=== PATIENT | male | born 1975 | race American Indian/Alaskan Native ===

== ENCOUNTER 2019-05-09 10:31 | Emergency (ER) | payer SELFPAY ==
--- NOTE | 2019-05-09 11:33 | XRay Report ---
CHEST 2 VIEWS INDICATION / CLINICAL INFORMATION: MAIN: persistant cough, fever FOR 3 DAYS. COMPARISON: None available. FINDINGS: SUPPORT DEVICES: None. HEART / MEDIASTINUM: No significant abnormality. LUNGS / PLEURA: No significant pulmonary or pleural abnormality. No pneumothorax. ADDITIONAL FINDINGS: No significant additional findings. IMPRESSION: 1. No acute findings. Signer Name: Yfn Saucedo MD Signed: 05/09/2019 11:29 AM Workstation Name: [id number]
--- NOTE | 2019-05-09 18:28 | Emergency Department Report ---
ED Fever HPI - General Chief Complaint: Fever Stated Complaint: FLU SX - History of Present Illness Initial Comments: 43-year-old male complaining of fevers or throat pain with chest pain when he coughs 3 days he denies shortness of breath he denies nausea vomiting and abdominal pain. Past medical history is of spina bifida. Patient ambulates with cane Timing/Duration: other (3 days) Fever Severity/Quality: low grade Associated Symptoms: cough, headache, sore throat. denies: abdominal pain, chest pain, confusion, nausea/vomiting, rash, shortness of breath ED Review of Systems ROS: Stated complaint: FLU SX Other details as noted in HPI Comment: All other systems reviewed and negative Constitutional: chills, fever Eyes: denies: eye pain ENT: throat pain. denies: ear pain Respiratory: cough. denies: shortness of breath, SOB with exertion Cardiovascular: denies: chest pain Gastrointestinal: denies: abdominal pain, nausea, vomiting Skin: denies: rash, lesions Neurological: headache ED Past Medical Hx - Past Medical History Previous Medical History?: Yes Additional medical history: Spina bifida - Surgical History Past Surgical History?: Yes Additional Surgical History: spinal surger - Social History Smoking Status: Current Every Day Smoker Substance Use Type: Alcohol - Medications Home Medications: Home Medications Medication Instructions Recorded Confirmed Last Taken Type Amoxicillin [Trimox CAP] 500 mg PO BID 10 Days #20 capsule 05/09/19 Unknown Rx ED Physical Exam - General Limitations: Physical Limitation General appearance: alert, in no apparent distress - Head Head exam: Absent: atraumatic - Eye Eye exam: Present: normal appearance. Absent: conjunctival injection - ENT ENT exam: Present: mucous membranes moist, TM's normal bilaterally, other (oropharynx erythremic no exudate mild uvula swelling) - Neck Neck exam: Present: normal inspection - Respiratory Respiratory exam: Present: normal lung sounds bilaterally. Absent: respiratory distress, wheezes - Cardiovascular Cardiovascular Exam: Present: regular rate, normal heart sounds - GI/Abdominal GI/Abdominal exam: Present: soft - Extremities Exam Extremities exam: Present: normal inspection - Neurological Exam Neurological exam: Present: alert, oriented X3 - Psychiatric Psychiatric exam: Present: normal affect - Skin Skin exam: Present: warm, dry, intact, normal color. Absent: rash ED Course Vital Signs 05/09/19 11:00 Temperature 99.1 F Pulse Rate 80 Respiratory 18 Rate Blood Pressure 143/89 [Right] O2 Sat by Pulse 99 Oximetry ED Medical Decision Making - Medical Decision Making 43-year-old male with complaint of fever sore throat and coughing 3 days rapid strep positive. We'll treat patient with amoxicillin 500 mg twice a day 10 days. And to follow up with PCP Critical Care Time: No Critical care attestation.: If time is entered above; I have spent that time in minutes in the direct care of this critically ill patient, excluding procedure time. ED Disposition Clinical Impression: Strep pharyngitis Disposition: DC- TO HOME OR SELFCARE Is pt being admited?: No Does the pt Need Aspirin: No Condition: Stable Instructions: Strep Throat (ED) Additional Instructions: Rest saltwater gargles at least 3 times a day. Increase oral intake 6-8 glasses of water daily. Take antibiotics until completed. After 24 hours of taking antibiotics change toothbrush. Okay to be use Advil or account or Tylenol for fever or pain. Follow up with Jennifer Prescriptions: Amoxicillin [Trimox CAP] 500 mg PO BID 10 Days #20 capsule Referrals: JENNIFER RODRIGUEZ [Other] - 3-5 Days Time of Disposition: 18:29
[2019-05-09 18:36] VITALS: BP 140/81
== END 2019-05-09 18:35 | disposition home or self-care (01) ==
LOC: ED 10:31
DX: J02.0 Streptococcal pharyngitis (principal); F17.200 Nicotine dependence, unspecified, uncomplicated; Z98.890 Other specified postprocedural states
CPT/HCPCS: 71046; 87400; 87430